=== PATIENT | male | born 1985 | race Caucasian/White ===

== ENCOUNTER 2019-11-26 21:49 | Emergency (ER) | payer OTHER ==
[2019-11-26] MEDS ORDERED: DIPH,PERTUS(ACELL)TETVAC-LF 0.5 ML VIAL IM ONE (22:18)
[2019-11-26] MEDS ORDERED: CIPROFLOXACIN HCL 500 MG TAB PO STA (23:05)
--- NOTE | 2019-11-26 23:55 | XR ---
EXAMINATION TYPE: XR foot complete LT DATE OF EXAM: 11/26/2019 COMPARISON: NONE HISTORY: Puncture wound TECHNIQUE: 3 views FINDINGS: There is plantar and Achilles calcaneal spurring. I see no fracture nor dislocation. Metata rsals are intact. Joint spaces are fairly normal. IMPRESSION: Calcaneal spurring. No fracture seen.
--- NOTE | 2019-11-27 00:08 | ED ---
General Adult HPI - General Chief complaint: Skin/Abscess/Foreign Body Stated complaint: LT foot injury Time Seen by Provider: 11/26/19 22:23 Source: patient, RN notes reviewed, old records reviewed Mode of arrival: ambulatory Limitations: no limitations - History of Present Illness Initial comments: 34-year-old male patient presents to ED for evaluation of puncture to plantar aspect of left foot. Patient reports that he is walking with issues any stepped on a piece of metal wiring of a fence post that went through his shoe and into his foot. Patient does not know date of last tetanus. He denies any other acute complaints. Denies any cough congestion and fevers chills nausea vomiting abdominal pain. Systemic: Pt denies fatigue, fever/chills, rash. Pt denies weakness, night sweats, weight loss. Neuro: Pt denies headache, visual disturbances, syncope or pre-syncope. HEENT: Pt denies ocular discharge or irritation, otalgia, rhinorrhea, phary ngitis or notable lymphadenopathy. Cardiopulmonary: Pt denies chest pain, SOB, heart palpitations, dyspnea on exertion. Abdominal/GI: Pt denies abdominal pain, n/v/d. : Pt denies dysuria, burning w/ urination, frequency/urgency. Denies new onset urinary or bowel incontinence. MSK: Pt denies myalgia, loss of strength or function in extremities. Neuro: Pt denies new onset weakness, paresthesias. - Related Data Previous Rx's Medication Instructions Recorded Ciprofloxacin HCl [Cipro] 500 mg PO Q12H 7 Days #14 tab 11/27/19 Allergies Allergy/AdvReac Type Severity Reaction Status Date / Time No Known Allergies Allergy Verified 11/26/19 21:56 Review of Systems ROS Statement: Those systems with pertinent positive or pertinent negative responses have been documented in the HPI. ROS Other: All systems not noted in ROS Statement are negative. Past Medical History Past Medical History: No Reported History History of Any Multi-Drug Resistant Organisms: None Reported Past Surgical History: No Surgical Hx Reported Past Psychological History: No Psychological Hx Reported Smoking Status: Never smoker Past Alcohol Use History: None Reported Past Drug Use History: None Reported General Exam - General Exam Comments Initial Comments: Constitutional: NAD, AOX3, Pt has pleasant affect. HEENT: NC/AT, trachea midline, neck supple, no lymphadenopathy. Posterior pharynx non erythematous, without exudates. External ears appear normal, without discharge. Mucous membranes moist. Eyes PERRLA, EOM intact. There is no scleral icterus. No pallor noted. Cardiopulmonary: RRR, no murmurs, rubs or gallops, no JVD noted. Lungs CTAB in anterior and posterior mckeon. No peripheral edema. Abdominal exam: Abdomen soft and non-distended. Abdomen non-tender to palpation in all 4 quadrants. Bowel sounds active in LLQ. No hepatosplenomegaly. No ecchymosis Neuro: CN II-XII grossly intact. No nuchal rigidity. No raccon eyes, no trevino sign, no hemotympanum. No cervical spinal tenderness. MSK: Small puncture noted to plantar aspect of left foot. This area was vigorously irrigated. No external skin changes. Neurovascularly intact. Limitations: no limitations Course Vital Signs 11/26/19 11/27/19 21:52 00:20 Temperature 100 F H 99.5 F Pulse Rate 100 96 Respiratory 20 18 Rate Blood Pressure 149/89 133/93 O2 Sat by Pulse 98 100 Oximetry Medical Decision Making - Medical Decision Making 34-year-old male patient presents to ED for evaluation of puncture to plantar aspect of left foot. Patient reports that he is walking with issues any stepped on a piece of metal wiring of a fence post that went through his shoe and into his foot. Patient does not know date of last tetanus. He denies any other acute complaints. Denies any cough congestion and fevers chills nausea vomiting abdominal pain. Patient vital signs are stable, afebrile. Physical exam displayed small puncture. Plain films displayed no foreign body or acute osseous process. I did recommend keyhole procedure patient which he declined. Patient tetanus was updated. Initiated on ciprofloxacin for 1 week. We'll close monitor for signs symptoms of infection and will follow up with primary care provider and return here if condition worsens. Case discussed with Dr. Macdonald Disposition Clinical Impression: Puncture wound of foot Disposition: HOME SELF-CARE Condition: Stable Instructions (If sedation given, give patient instructions): Puncture Wound (ED) Additional Instructions: Taken antibiotics as directed. Monitor closely for signs of infection. Follow- up with primary care provider tomorrow. Return to ER if condition worsens. Prescriptions: Ciprofloxacin HCl [Cipro] 500 mg PO Q12H 7 Days #14 tab Is patient prescribed a controlled substance at d/c from ED?: No Referrals: None,Stated [Primary Care Provider] - 1-2 days Ofelia Juarez MD [REFERRING] - 1-2 days
[2019-11-27 00:21] VITALS: BP 133/93; PULSE 96; RESP 18; TEMP 99.5
== END 2019-11-27 00:56 | disposition home or self-care (01) ==
LOC: EC 21:49
DX: S91.332A Puncture wound without foreign body, left foot, initial encounter (principal); Z23 Encounter for immunization; W22.8XXA Striking against or struck by other objects, initial encounter; Y93.01 Activity, walking, marching and hiking
CPT/HCPCS: 90471; 90715; 99284